=== PATIENT | female | born 1975 | race Caucasian/White ===

== ENCOUNTER → 2020-08-31 | Outpatient (CLI) | payer OTHER ==
[~2020-08-31] MED LIST: DELSYM30 MG/5 ML PO; IBUPROFEN600 MG PO; TORADOL 10 MG T10 MG PO
== END ==
LOC: KOH-I 14:01
DX: R10.9 Unspecified abdominal pain (principal)
CPT/HCPCS: 74018

== ENCOUNTER 2020-09-26 13:53 | Emergency (ER) | payer OTHER ==
[~2020-09-26 13:53] MED LIST changes: -DELSYM30 MG/5 ML PO; -IBUPROFEN600 MG PO
== END 2020-09-26 16:17 | disposition home or self-care (01) ==
LOC: ER1 13:53
DX: U07.1 COVID-19 (principal); F17.210 Nicotine dependence, cigarettes, uncomplicated
CPT/HCPCS: 71045; 99283; U0002

== ENCOUNTER 2020-10-03 13:20 | Emergency (ER) | payer OTHER ==
[~2020-10-03] VITALS: Ht 172.7 cm; Wt 97.5 kg
[2020-10-03] MEDS ORDERED: IBUPROFEN600 MG PO (15:39)
[2020-10-03] MEDS ORDERED: DELSYM30 MG/5 ML PO (15:39)
== END 2020-10-03 16:00 | disposition home or self-care (01) ==
LOC: ER1 13:20
DX: Z23 Encounter for immunization (principal); U07.1 COVID-19; E03.9 Hypothyroidism, unspecified; F17.200 Nicotine dependence, unspecified, uncomplicated; Z88.5 Allergy status to narcotic agent
CPT/HCPCS: 99283; M0243

== ENCOUNTER → 2020-12-10 | Outpatient (CLI) | payer OTHER ==
[~2020-12-10] MED LIST changes: +DELSYM30 MG/5 ML PO; +IBUPROFEN600 MG PO
== END ==
LOC: KOH-I 09:41
DX: R20.0 Anesthesia of skin (principal)
CPT/HCPCS: 72040; 72070

== ENCOUNTER 2021-01-03 21:23 | Inpatient (IN) | payer OTHER ==
[~2021-01-03] VITALS: Ht 172.7 cm; Wt 97.5 kg
[2021-01-03 22:18] LABS: HEMOGLOBIN 13.5 gm/dl (12.3-15.3); RED BLOOD COUNT 4.49 M/UL (4.00-5.10); WHITE BLOOD COUNT 16.9 K/UL (4.5-11.0)
[2021-01-03 22:40] LABS: BUN/CREATININE RATIO 13 (0-10)
[2021-01-04] MEDS ORDERED: IRON240 MG PO (11:34)
[2021-01-04] MEDS ORDERED: LEVOTHYROXINE100 MC2 PO (11:34)
[2021-01-04] MEDS ORDERED: FISH OIL 1,0001 EACH PO (11:34)
[2021-01-05 07:27] LABS: HEMOGLOBIN 10.9 gm/dl (12.3-15.3); RED BLOOD COUNT 3.72 M/UL (4.00-5.10); WHITE BLOOD COUNT 12.5 K/UL (4.5-11.0)
[2021-01-05 07:53] LABS: BUN/CREATININE RATIO 16 (0-10)
== END 2021-01-06 18:40 | disposition home or self-care (01) | DRG 419 ==
LOC: ER1 21:23 → CDU 01-04 00:49 → MED SURG 4 01-04 00:49
PROVIDERS: Internal Medicine Gastroenterology; Physician Assistant; ADMIT Surgery
PROC: BF131ZZ Fluoroscopy of Gallbladder and Bile Ducts using Low Osmolar Contrast (ICD-10-PCS; 2021-01-04)
PROC: 0FT44ZZ Resection of Gallbladder, Percutaneous Endoscopic Approach (ICD-10-PCS; principal; 2021-01-04 10:45)
PROC: 0F798ZZ Dilation of Common Bile Duct, Via Natural or Artificial Opening Endoscopic (ICD-10-PCS; 2021-01-06)
PROC: BF141ZZ Fluoroscopy of Gallbladder, Bile Ducts and Pancreatic Ducts using Low Osmolar Contrast (ICD-10-PCS; 2021-01-06)
PROC: 0FC98ZZ Extirpation of Matter from Common Bile Duct, Via Natural or Artificial Opening Endoscopic (ICD-10-PCS; 2021-01-06)
DX: K80.46 Calculus of bile duct with acute and chronic cholecystitis without obstruction (principal); F17.210 Nicotine dependence, cigarettes, uncomplicated; Z95.0 Presence of cardiac pacemaker; Z98.51 Tubal ligation status; Z98.890 Other specified postprocedural states; Z79.899 Other long term (current) drug therapy
CPT/HCPCS: 36415; 74330; 80053; 80076; 81001; 82150; 82550; 82553; 82962; 83605; 83690; 84484; 84703; 85025; 85027; 85610; 87086; 93005; 96374; 96375; 99285; C1725; C1769; C2617; J0295; J0330; J0690; J1100; J2001; J2250; J2270; J2405; J2704; J2710; J3010; J7030; J7120; Q9967; U0002

== ENCOUNTER → 2021-01-27 | Outpatient (CLI) | payer OTHER ==
[~2021-01-27] MED LIST changes: +FISH OIL 1,0001 EACH PO; +HYDROCODON-ACE1 EAC4 PO; +IRON240 MG PO; +LEVOTHYROXINE100 MC2 PO
== END ==
LOC: OR 07:30 → RAD 08:00 → CT 08:01
DX: M47.12 Other spondylosis with myelopathy, cervical region (principal); M48.02 Spinal stenosis, cervical region; M51.04 Intervertebral disc disorders with myelopathy, thoracic region; M51.06 Intervertebral disc disorders with myelopathy, lumbar region; M47.14 Other spondylosis with myelopathy, thoracic region; M47.16 Other spondylosis with myelopathy, lumbar region; M51.27 Other intervertebral disc displacement, lumbosacral region; M43.17 Spondylolisthesis, lumbosacral region; I51.7 Cardiomegaly; R59.0 Localized enlarged lymph nodes; K44.9 Diaphragmatic hernia without obstruction or gangrene; Z95.0 Presence of cardiac pacemaker
CPT/HCPCS: 72129; 72132; Q9967

== ENCOUNTER 2021-01-28 09:23 | Emergency (ER) | payer OTHER ==
[~2021-01-28 09:23] MED LIST changes: -HYDROCODON-ACE1 EAC4 PO
[2021-01-28] MEDS ORDERED: HYDROCODON-ACE1 EAC4 PO (11:40)
== END 2021-01-28 12:35 | disposition home or self-care (01) ==
LOC: ER1 09:23
DX: M54.6 Pain in thoracic spine (principal); F17.210 Nicotine dependence, cigarettes, uncomplicated; E78.5 Hyperlipidemia, unspecified
CPT/HCPCS: 96372; 99283; J1100; J1885; J2270

== ENCOUNTER → 2021-03-25 | Outpatient (CLI) | payer OTHER ==
[~2021-03-25] MED LIST changes: +HYDROCODON-ACE1 EAC4 PO
== END ==
LOC: KOH-I 08:51
DX: R10.9 Unspecified abdominal pain (principal); R14.3 Flatulence
CPT/HCPCS: 74018

== ENCOUNTER → 2021-03-28 | Outpatient (CLI) | payer OTHER ==
[~2021-03-28] MED LIST changes: +CLINDAMYCIN HC300 MG PO; +LEVOFLOXACIN500 MG PO
[2021-03-28 10:47] LABS: HEMOGLOBIN 13.7 gm/dl (12.3-15.3); RED BLOOD COUNT 4.58 M/UL (4.00-5.10); WHITE BLOOD COUNT 12.5 K/UL (4.5-11.0)
[2021-03-28 11:12] LABS: BUN/CREATININE RATIO 19 (0-10)
== END ==
LOC: ECHO 10:00
PROVIDERS: Internal Medicine Cardiovascular Disease
DX: Z45.010 Encounter for checking and testing of cardiac pacemaker pulse generator [battery] (principal); I49.5 Sick sinus syndrome; I45.89 Other specified conduction disorders; I51.9 Heart disease, unspecified; I08.1 Rheumatic disorders of both mitral and tricuspid valves
CPT/HCPCS: ECHO; 36415; 71046; 80048; 85025; 93306

== ENCOUNTER → 2021-03-30 | Outpatient (CLI) | payer OTHER | LOC: CATH 12:09 | DX: Z45.010 Encounter for checking and testing of cardiac pacemaker pulse generator [battery] (principal); I49.5 Sick sinus syndrome; I45.89 Other specified conduction disorders; E03.9 Hypothyroidism, unspecified; R07.9 Chest pain, unspecified; R53.1 Weakness; R53.83 Other fatigue; F17.210 Nicotine dependence, cigarettes, uncomplicated; Z88.5 Allergy status to narcotic agent; Z79.899 Other long term (current) drug therapy; Z20.822 Contact with and (suspected) exposure to COVID-19 | CPT/HCPCS: 33213; 99152; 99153; C1785; J1200; J2250; J3010; J3370; J7040; J7050; U0002 ==

== ENCOUNTER → 2021-09-13 | Outpatient (CLI) | payer OTHER | LOC: KOH-I 10:42 | DX: M79.672 Pain in left foot (principal) | CPT/HCPCS: 73610; 73630 ==

== ENCOUNTER → 2021-10-11 | Outpatient (CLI) | payer OTHER | LOC: KOH-I 10:25 | DX: M25.561 Pain in right knee (principal) | CPT/HCPCS: 73564 ==

== ENCOUNTER → 2021-11-02 | Outpatient (CLI) | payer OTHER | LOC: KOH-I 09:45 | DX: M47.817 Spondylosis without myelopathy or radiculopathy, lumbosacral region (principal) | CPT/HCPCS: 72100 ==